=== PATIENT | male | born 1980 | race Caucasian/White ===

== ENCOUNTER → 2017-01-06 | Outpatient (CLI) | payer OTHER ==
--- NOTE | 2017-01-06 10:00 | DIAGNOSTIC IMAGING REPORT ---
RIGHT FOOT 3 VIEWS HISTORY: PAIN IN RIGHT TOE Right COMPARISON: None. FINDINGS: There is no fracture or dislocation. Soft tissues are unremarkable. No radiopaque foreign bodies. IMPRESSION: No fractures. Electronically signed by: Camron Amaya M.D. 01/06/2017 9:59 AM Dictated Date/Time: 01/06/2017 9:57 AM
== END | disposition home or self-care (01) ==
LOC: C.RAD1850 09:43
PROVIDERS: ATTEND Family Medicine
DX: M79.674 Pain in right toe(s) (principal)

== ENCOUNTER → 2017-09-19 | Outpatient (CLI) | payer OTHER | END | disposition home or self-care (01) | LOC: C.PATHSPEC 17:51 | PROVIDERS: ATTEND Urology | DX: Z30.2 Encounter for sterilization (principal) ==

== ENCOUNTER 2018-04-06 10:43 | Emergency (ER) | payer OTHER ==
[~2018-04-06] VITALS: Ht 167.6 cm; Wt 84.6 kg
[2018-04-06 10:50] VITALS: TEMP 36.8; Ht 167.6 cm; Wt 84.6 kg
[2018-04-06 10:51] VITALS: O2SAT 96
[2018-04-06 11:23] LABS: BASO % 0.3 %; BASO ABS # 0.01 K/uL (0-0.2); EOS % 1.3 %; EOS ABS # 0.05 K/uL (0-0.5); HEMATOCRIT 45.2 % (42-52); HEMOGLOBIN 16.2 g/dL (14.0-18.0); LYMPH % 39.6 %; LYMPH ABS # 1.56 K/uL (1.2-3.4); MEAN CORPUSCULAR HEMOGLOBIN 32.3 pg (25-34); MEAN CORPUSCULAR HGB CONC 35.8 g/dl (32-36); MEAN PLATELET VOLUME 9.2 fL (7.4-10.4); MONO % 6.1 %; MONO ABS # 0.24 K/uL (0.11-0.59); NEUT % 52.7 %; NEUT ABS # 2.08 K/uL (1.4-6.5); PLATELET COUNT 210 K/uL (130-400); RED CELL DISTRIBUTION WIDTH CV 11.7 % (11.5-14.5); RED CELL DISTRIBUTION WIDTH SD 38.3 fL (36.4-46.3); WHITE BLOOD COUNT 3.94 K/uL (4.8-10.8)
--- NOTE | 2018-04-06 11:36 | EMERGENCY ROOM VISIT NOTE ---
History Report prepared by Fredibarya: Rosina Chairez Under the Supervision of: Dr. Barbara Gates M.D. First contact with patient: 10:59 Chief Complaint: CARDIAC ASSESSMENT Stated Complaint: CHEST TIGHTNESS History of Present Illness The patient is a 37 year old male who presents to the Emergency Room with complaints of an episode of chest pain beginning today. He notes he woke up, ate breakfast, and was attending a cheer event for his daughter when he suddenly felt "spacey", hot, dizzy, and experienced pain in his chest and shoulder. The patient notes his symptoms began as GERD and shoulder pain 3 months ago, which has not resolved even with 2x daily Zantac. He reports his symptoms usually begin after eating, and the shoulder pain extends down into his triceps area. The patient notes today he ate breakfast at [employer], and had an egg white omelette, green peppers, ham, cheddar cheese, dry wheat toast, some hash browns. He denies any vomiting or chills and states he currently feels good, but a little "spacey" when standing up. The patient denies any blood sugar problems and notes he quit smoking in September 2004. He reports he recently had a US gallbladder and bloodwork, which both came back normal. The patient states his grandparents had heart disease. Source of History: patient Onset: today Position: chest Quality: other (pain) Timing: other (episode) Note: Associated symptom: pain in shoulder and triceps area, GERD Review of Systems See HPI for pertinent positives & negatives. A total of 10 systems reviewed and were otherwise negative. Past Medical & Surgical Medical Problems: (1) Arm pain (2) Chest pain Family History Heart disease Social History Smoking Status: Former Smoker Marital Status: Housing Status: lives with family Occupation Status: employed Current/Historical Medications Scheduled Fluticasone Propionate (Nasal) (Flonase Allergy Relief), 1 SPRAY PEDRO DIRECTED Loratadine (Claritin), 10 MG PO DIRECTED Pantoprazole (Protonix), 40 MG PO DAILY Ranitidine Hcl (Zantac), 150 MG PO BID Allergies Coded Allergies: No Known Allergies (Unverified , 04/06/18) Physical Exam Vital Signs Date Time Temp Pulse Resp B/P (MAP) Pulse Ox O2 Delivery O2 Flow Rate FiO2 04/06/18 17:20 82 20 126/84 99 04/06/18 16:00 75 16 121/74 97 Room Air 04/06/18 14:14 74 18 120/79 97 Room Air 04/06/18 13:00 70 16 111/74 97 Room Air 04/06/18 11:37 65 20 116/74 96 Room Air 63 132/76 60 123/78 04/06/18 10:54 69 04/06/18 10:51 96 Room Air 04/06/18 10:50 96 Room Air 04/06/18 10:50 36.8 76 18 130/79 96 Room Air Physical Exam Vital signs reviewed. General: Well-appearing man, in no significant distress. HEENT: No scleral icterus, PERRLA, neck supple. Atraumatic. Cardiovascular: Regular rate and rhythm, no extra sounds. Pulmonary: Clear to auscultation bilaterally, normal work of breathing. Abdomen: Soft, nontender, nondistended, positive bowel sounds. Musculoskeletal: Atraumatic, no peripheral edema. Neurologic: Patient awake alert and oriented x 3 Skin: Warm, dry, no rash Medical Decision & Procedures ER Provider Diagnostic Interpretation: Radiology results as stated below per my review and radiologist interpretation: CHEST ONE VIEW PORTABLE HISTORY: Atypical chest pain COMPARISON: None. FINDINGS: The lungs are clear. Cardiac silhouette is normal in size. No pleural effusions. No pneumothorax. IMPRESSION: No acute process. Electronically signed by: Camron Amaya M.D. 04/06/2018 11:46 AM Dictated Date/Time: 04/06/2018 11:42 AM Laboratory Results 04/06/18 10:58 Red Blood Count 5.02, Mean Corpuscular Volume 90.0, Mean Corpuscular Hemoglobin 32.3, Mean Corpuscular Hemoglobin Concent 35.8, Mean Platelet Volume 9.2, Neutrophils (%) (Auto) 52.7, Lymphocytes (%) (Auto) 39.6, Monocytes (%) (Auto) 6.1, Eosinophils (%) (Auto) 1.3, Basophils (%) (Auto) 0.3, Neutrophils # (Auto) 2.08, Lymphocytes # (Auto) 1.56, Monocytes # (Auto) 0.24, Eosinophils # (Auto) 0.05, Basophils # (Auto) 0.01 04/06/18 10:58 Test 04/06/18 00:00 04/06/18 10:58 04/06/18 13:51 Urine Color YELLOW Urine Appearance CLEAR (CLEAR) Urine pH 8.5 (4.5-7.5) Urine Specific [place] 1.009 (1.000-1.030) Urine Protein NEG (NEG) Urine Glucose (UA) NEG (NEG) Urine Ketones NEG (NEG) Urine Occult Blood NEG (NEG) Urine Nitrite NEG (NEG) Urine Bilirubin NEG (NEG) Urine Urobilinogen NEG (NEG) Urine Leukocyte Esterase NEG (NEG) White Blood Count 3.94 K/uL (4.8-10.8) Red Blood Count 5.02 M/uL (4.7-6.1) Hemoglobin 16.2 g/dL (14.0-18.0) Hematocrit 45.2 % (42-52) Mean Corpuscular Volume 90.0 fL (80-100) Mean Corpuscular Hemoglobin 32.3 pg (25-34) Mean Corpuscular Hemoglobin Concent 35.8 g/dl (32-36) Platelet Count 210 K/uL (130-400) Mean Platelet Volume 9.2 fL (7.4-10.4) Neutrophils (%) (Auto) 52.7 % Lymphocytes (%) (Auto) 39.6 % Monocytes (%) (Auto) 6.1 % Eosinophils (%) (Auto) 1.3 % Basophils (%) (Auto) 0.3 % Neutrophils # (Auto) 2.08 K/uL (1.4-6.5) Lymphocytes # (Auto) 1.56 K/uL (1.2-3.4) Monocytes # (Auto) 0.24 K/uL (0.11-0.59) Eosinophils # (Auto) 0.05 K/uL (0-0.5) Basophils # (Auto) 0.01 K/uL (0-0.2) RDW Standard Deviation 38.3 fL (36.4-46.3) RDW Coefficient of Variation 11.7 % (11.5-14.5) Immature Granulocyte % (Auto) 0.0 % Immature Granulocyte # (Auto) 0.00 K/uL (0.00-0.02) Anion Gap 5.0 mmol/L (3-11) Est Creatinine Clear Calc Drug Dose 92.9 ml/min Estimated GFR () 98.2 Estimated GFR (Non- 84.7 BUN/Creatinine Ratio 12.9 (10-20) Calcium Level 8.5 mg/dl (8.5-10.1) Total Bilirubin 0.6 mg/dl (0.2-1) Direct Bilirubin 0.1 mg/dl (0-0.2) Aspartate Amino Transf (AST/SGOT) 19 U/L (15-37) Alanine Aminotransferase (ALT/SGPT) 26 U/L (12-78) Alkaline Phosphatase 77 U/L (45-117) Total Protein 7.3 gm/dl (6.4-8.2) Albumin 3.9 gm/dl (3.4-5.0) Lipase 167 U/L (73-393) Troponin I < 0.015 ng/ml (0-0.045) Laboratory results per my review. ECG Per My Interpretation Indication: chest pain Rate (beats per minute): 71 Rhythm: normal sinus Findings: 1st degree AV block, T-wave inversion (Inferior), no ectopy, other ( poor R wave progression) ED Course 1108: Past medical records reviewed. The patient was evaluated in room B3B. A complete history and physical examination was performed. 1348: I reviewed the patient's case with Dr. Elliott, [facility] Laboratory Assistant. 1351: I discussed the case again with with Dr. Elliott, [facility] Laboratory Assistant. He will perform a stress test on the patient. 1420: I reevaluated and updated the patient. 1540: Upon reevaluation, the patient appeared to have improvement of his symptoms. I discussed findings with him. He verbalized agreement of the treatment plan. The patient was discharged home. Medical Decision Differential diagnosis: Acute coronary syndrome, pulmonary embolus, aortic dissection, musculoskeletal pain, pneumonia, pleural effusion, pneumothorax This patient was evaluated and appeared to be in no significant distress. IV access was obtained and laboratory work was drawn. Patient was placed on the vehicle monitor technician and found to be in a normal sinus rhythm. EKG reveals T-wave inversions in the anterior leads and poor R-wave progression. Patient has troponins 2 that are negative. Case was discussed with Dr. Elliott of cardiology who agreed to perform cardiac stress test. The study is reportedly negative for ischemia. The patient was in the emergency department for several hours. He was feeling somewhat improved. The right shoulder symptoms seem to be more radicular. Chest x-ray is clear. Patient was given Protonix 40 mg p.o. advised to begin Protonix daily. He will continue Zantac twice a day as needed. It was strongly recommended that he follow-up with gastroenterology for EGD and potential HIDA scan. He will contact his primary care physician this week for reevaluation and consideration of further testing. He will return to the ED for worsening of symptoms or any medical concerns. Medication Reconcilliation Current Medication List: was personally reviewed by me Blood Pressure Screening Patient's blood pressure: Normal blood pressure Blood pressure disposition: Did not require urgent referral Consults Time Called: 1340 Consulting Physician: Dr. Elliott, [facility] Laboratory Assistant Returned Call: 1341 1342: I reviewed the patient's case with Dr. Elliott, [facility] Laboratory Assistant. 1351: I discussed the case again with with Dr. Elliott, [facility] Laboratory Assistant. He will perform a stress test on the patient. Impression Primary Impression: Non-cardiac chest pain Scribe Attestation The scribe's documentation has been prepared under my direction and personally reviewed by me in its entirety. I confirm that the note above accurately reflects all work, treatment, procedures, and medical decision making performed by me. Departure Information Dispostion Home / Self-Care Prescriptions Pantoprazole (Protonix) 40 Mg Tab 40 MG PO DAILY, #30 TAB Prov: Barbara Gates M.D. 04/06/18 Referrals No Doctor, Assigned (PCP) Forms IMPORTANT VISIT INFORMATION Patient Instructions My [facility] Additional Instructions Diagnosis: Noncardiac chest pain Protonix 40 mg daily. Follow-up with your PCP this week for reevaluation and consideration of referral to gastroenterology. You may need upper endoscopy and HIDA scan. Avoid NSAIDs such as aspirin, Aleve and ibuprofen. Avoid alcohol and coffee. Return to the emergency department for worsening of symptoms or any medical concerns.
[2018-04-06 11:44] LABS: ALBUMIN 3.9 gm/dl (3.4-5.0); ALKALINE PHOSPHATASE 77 U/L (45-117); ALT/SGPT 26 U/L (12-78); AST/SGOT 19 U/L (15-37); BLOOD UREA NITROGEN 14 mg/dl (7-18); CALCIUM 8.5 mg/dl (8.5-10.1); CARBON DIOXIDE 27 mmol/L (21-32); GLUCOSE 121 mg/dl (70-99); LIPASE 167 U/L (73-393); POTASSIUM 4.6 mmol/L (3.5-5.1); SODIUM 135 mmol/L (136-145); TOTAL PROTEIN 7.3 gm/dl (6.4-8.2)
--- NOTE | 2018-04-06 11:47 | DIAGNOSTIC IMAGING REPORT ---
CHEST ONE VIEW PORTABLE HISTORY: Atypical chest pain COMPARISON: None. FINDINGS: The lungs are clear. Cardiac silhouette is normal in size. No pleural effusions. No pneumothorax. IMPRESSION: No acute process. Electronically signed by: Camron Amaya M.D. 04/06/2018 11:46 AM Dictated Date/Time: 04/06/2018 11:42 AM
[2018-04-06] MEDS ORDERED: FLUT0.15 NAE (13:59)
[2018-04-06] MEDS ORDERED: CLR10 PO (13:59)
[2018-04-06] MEDS ORDERED: RANI150T3 PO (13:59)
[2018-04-06] MEDS ORDERED: PANT40TA PO (17:19)
[2018-04-06 17:20] VITALS: BP 126/84; PULSE 82; O2SAT 99
[2018-04-06] MEDS ORDERED: PANTOprazole SOD 40 MG TAB PO STA (17:20)
--- NOTE | 2018-04-10 15:07 | EXERCISE STRESS ECHO ---
*NOTICE TO RECEIVING CONSTITUTION PARTY AGENCY This information is strictly Confidential and protected under [place] law. [place] law prohibits you from making any further disclosure of this information unless further disclosure is expressly permitted by the written consent of the person to whom it pertains or is authorized by law. A general authorization for the release of medical or other information is not sufficient for this purpose. Hospital accepts no responsibility if the information is made available to any other person, INCLUDING THE PATIENT. Interpretation Summary * Name: PERRI BROOKS Study Date: 04/06/2018 02:30 PM BP: 130/72 mmHg * Patient Location: C.EDB HR: 65 * : 1980 (M/d/yyyy) Gender: Male Height: 66 in * Age: 37 yrs Ethnicity: [place] Weight: 180 lb * Ordering Physician: Barbara Gates * Referring Physician: Self, Referred * Performed By: Sherif Marquez RCS * * Reason For Study: Chest Pain * BSA: 1.9 m2 * -- Conclusions -- * 1. Normal stress echocardiogram at 11.2 METS and a peak heart rate of 92% predicted maximum. * 2. No exercise-induced chest pain. * 3. No EKG changes. * 4. Baseline echocardiogram notes normal left ventricular systolic function and no wall motion abnormalities. Procedure Details * ECHOEX, CPT #[id number] Left Ventricle * The left ventricle is normal in size. * There is normal left ventricular wall thickness. * Left ventricular systolic function is normal. * Resting wall motion: Normal. Stress wall motion: Appropriate increase in Left ventricular systolic function and decrease in cavity size. No stress induced segmental wall motion abnormalities. Stress Parameters * Normal baseline electrocardiogram. * Stress ECG: No ST changes. No arrhythmias. * The stress portion of this study was personally supervised by the undersigned interpreting physician. * Rest heart rate was '65' BPM. * Rest blood pressure was '130/72' * Maximum heart rate achieved was 169 bpm. * Maximum heart rate was 92 % of maximum age-predicted heart rate. * Maximum blood pressure was '186/58' * Total exercise time was '9:40' * Maximum exercise MET level achieved was '11.2' METS * Maximum treadmill speed was '4.2' miles per hour. * Maximum treadmill elevation was '16'% grade. * Exercise was terminated due to 'achieving target heart rate' * Normal blood pressure response to exercise.
== END 2018-04-06 17:20 | disposition home or self-care (01) ==
LOC: EDBD 10:43 → C.EDB 10:44
DX: R07.89 Other chest pain (principal); I44.0 Atrioventricular block, first degree; Z79.899 Other long term (current) drug therapy; Z87.891 Personal history of nicotine dependence